=== PATIENT | male | born 1980 | race Caucasian/White ===

== ENCOUNTER 2022-02-24 16:40 | Emergency (ER) | payer MEDICAID, SELFPAY ==
[2022-02-24 16:44] VITALS: BP 143/80; PULSE 84; RESP 20; TEMP 37.2; O2SAT 99; BMI 29.1
--- NOTE | 2022-02-24 17:10 | ED_ITS ---
HPI - Skin/Abscess/Foreign Bdy General Chief complaint: Skin/Abscess/Foreign Body Stated complaint: rash all over body Time Seen by Provider: 02/24/22 17:09 Source: patient Mode of arrival: ambulatory Limitations: no limitations History of Present Illness HPI narrative: 41-year-old male presents to the ER for evaluation of a itchy rash that has spread for the last 2 and half weeks. He reports the rash started on his chest wall when he was admitted at [facility] for endocarditis. It was small red lesions and is now spread to his entire back and has small scattered areas on his forearms as well. He reports it is extremely itchy and uncomfortable. He denies any new lotions, detergents, soaps, perfumes. He denies any fever or chills. Denies any concern for scabies or lice. He took Benadryl once and it did not help so he stopped taking it. He reports a history of contact dermatitis and sensitive skin in the past. He has been off of antibiotics for his endocarditis. MD complaint: rash Onset (ago): week(s) Tetanus up to date: yes Location: face, neck, chest and back Severity: moderate Severity scale (1-10): 6 Quality: pruritic Pain Consistency: constant Relieving factors: none Exacerbating factors: none Context: recent illness Associated symptoms: denies other symptoms Treatments prior to arrival: none Related Data Previous Rx's Medication Instructions Recorded diphenhydramine HCl 50 mg capsule 50 mg PO Q6H PRN #20 cap 02/24/22 doxycycline hyclate 100 mg tablet 100 mg PO BID #14 tab 02/24/22 prednisone 50 mg tablet 50 mg PO DAILY #7 tab 02/24/22 Allergies Allergy/AdvReac Type Severity Reaction Status Date / Time cephalexin [From Keflex] Allergy Severe Difficulty Verified 02/24/22 17:11 Breathing Review of Systems Review of Systems: Constitutional: No Fever, No Chills ENT/Mouth: No sore throat, No Rhinorrhea, No Swallowing Difficulty Eyes: No Eye Pain, No Swelling, No Redness Cardiovascular: No Chest Pain, No SOB, No Orthopnea, No Edema Respiratory: No Cough, No Sputum, No Wheezing, No dyspnea Gastrointestinal: No Nausea, No Vomiting, No Diarrhea, No abdominal Pain Genitourinary: No Dysuria, No Urinary Frequency, No Hematuria Musculoskeletal: No joint pain, No Myalgias Skin: No Skin Lesions, + rash Neuro: No Weakness, No Numbness, No Dizziness, No Headache Psych: +Anxiety/Panic, No Depression Heme/Lymph: No Bruising, No Lymphadenopathy Endocrine: No Polyuria, No Polydipsia PMFSH Social History Social History Advance Directives: No Advance Directives Information Provided: No Physical Exam Vital Signs: Vital Signs: Last Vital Signs Temp 98.9 F 02/24/22 16:44 Pulse 84 02/24/22 16:44 Resp 20 02/24/22 16:44 BP 143/80 H 02/24/22 16:44 Pulse Ox 99 02/24/22 16:44 BMI result Body Mass Index 29.1 Appearance: Alert. Oriented X3. No acute distress. HEENT: normal inspection No swelling of the lips or tongue. Normal voice, handling secretions normally. CVS: Normal heart rate and rhythm. Pulses normal. No appreciable murmur. Respiratory: No respiratory distress. Lungs are clear throughout. Skin: Skin warm and dry. Normal skin color. Normal skin turgor. There is a diffuse, erythematous, maculopapular rash located scattered along the chest wall, abdomen and most notably on the upper back. There are small tiny pustules in certain areas. There are few scattered lesions on the forearms. There is also small area located on the face and neck. Extremities: normal inspection x4. no evidence of track quick. No rash in the webbing of the hands or on the palms. Neuro: Oriented X 3. No motor deficit. No sensory deficit. Course Course Course Narrative: 41-year-old male presents to the ER for evaluation of a pruritic and spreading rash for the last 2 weeks. They are certain areas that appear like folliculitis and others that urticarial in nature. Next extremely itchy. Will treat empirically for possible folliculitis and also give a course of steroids and Benadryl for itching given the diffuse distribution. He was encourage follow- up with his primary care doctor next week. He is encouraged come back to the ER if symptoms worsened despite treatment. Stable for discharge home. Discharge Plan Discharge Clinical Impression: Contact dermatitis Patient Disposition: Home, Self-Care Instructions: Contact Dermatitis (DC) Additional Instructions: Take all of the prescribed medications as directed You can also try topical benadryl spray to help with the itch, or apply ice Recommend using Dial antimicrobial body wash Follow up with your doctor next week If you develop new or worsening symptoms call 911 or come back to the ER for further evaluation. Prescriptions: New prednisone 50 mg tablet 50 mg PO DAILY Qty: 7 0RF diphenhydramine HCl 50 mg capsule 50 mg PO Q6H PRN (Reason: itching) Qty: 20 0RF doxycycline hyclate 100 mg tablet 100 mg PO BID Qty: 14 0RF Interventions: ED Discharge Assessment Last Done: 02/24/22 17:24 Discharge Date/Time: 02/24/22 17:25
== END 2022-02-24 17:25 | disposition home or self-care (01) ==
LOC: HO.ED 17:19
PROVIDERS: Emergency Provider Emergency Medicine; PCP Physician Assistant Medical
DX: L25.9 Unspecified contact dermatitis, unspecified cause (principal); R21 Rash and other nonspecific skin eruption; Z79.899 Other long term (current) drug therapy
CPT/HCPCS: 51798; 96365; 96376; 99283

== ENCOUNTER 2022-03-05 16:31 | Emergency (ER) | payer OTHER, SELFPAY ==
[2022-03-05 16:45] VITALS: BP 147/82; PULSE 97; RESP 18; TEMP 36.8; O2SAT 98; BMI 29.8
--- NOTE | 2022-03-05 17:15 | ED.ALLEREA ---
HPI - Allergic Reaction General Chief complaint: Allergic Reaction Stated complaint: body rash/itchiness Time Seen by Provider: 03/05/22 17:14 Source: patient Mode of arrival: ambulatory Limitations: no limitations History of Present Illness MD complaint: allergic reaction and hives Onset (ago): day(s) ( few days worse today) Exposure: unknown Symptoms: rash and itching Severity: moderate Treatment prior to arrival: benadryl (50mg ) Previous Allergic Reaction History: prior ED visit(s) (was seen here 1 week ago for similar complaint ) Related Data Previous Rx's Medication Instructions Recorded diphenhydramine HCl 50 mg capsule 50 mg PO Q6H PRN itching #20 caps 02/24/22 doxycycline hyclate 100 mg tablet 100 mg PO BID #14 tabs 02/24/22 prednisone 50 mg tablet 50 mg PO DAILY #7 tabs 02/24/22 diphenhydramine HCl 25 mg capsule 50 mg PO TID PRN allergic reaction 03/05/22 (Allergy Medication) #20 caps famotidine 20 mg tablet (Pepcid) 20 mg PO BID rash #20 tabs 03/05/22 hydrocortisone 2.5 % topical 1 appl topical QD-TID PRN skin 03/05/22 ointment irritation #454 grams prednisone 20 mg tablet 40 mg PO DAILY rash 5 days #10 tabs 03/05/22 Allergies Allergy/AdvReac Type Severity Reaction Status Date / Time cephalexin [From Keflex] Allergy Severe Difficulty Verified 03/05/22 16:44 Breathing Review of Systems Review of Systems: Constitutional : No Fever, No Chills , no body aches, no recent illness Head/Face: No facial swelling, No facial redness ENT/Mouth : No oral/throat swelling, No Hoarseness, No Swallowing Difficulty Eyes: No Eye Pain, No Swelling, No Redness Cardiovascular : No Chest Pain, No SOB, No palpitations Respiratory : No Cough, No Sputum, No Wheezing, No Smoke Exposure, No Dyspnea Gastrointestinal : No Nausea, No Vomiting, No Diarrhea, No abdominal Pain Genitourinary : No Dysuria, No Urinary Frequency, No Hematuria Musculoskeletal : No joint pain, No Myalgias, No Joint Swelling Skin : No Skin Lesions, positive rash Neuro : No Weakness, No Numbness, No Headache, No dizziness, No tingling Psych : No Anxiety/Panic, No Depression Heme/Lymph: No Bruising, No Lymphadenopathy Endocrine : No Polyuria, No Polydipsia Denies changes in lotions or detergents. Denies new medications or any changes in medications. Denies drainage from rash. Denies any recent sick contacts or recent travel. Yes all other systems are reviewed and are negative [facility] Past Medical History Attestation statement: The following information was validated with the patient. Source: old records reviewed and nursing notes reviewed Social History Social History Advance Directives: No Advance Directives Information Provided: Yes Physical Exam ED Vital Signs: Vital Signs - 24 hr 03/05/22 16:45 Temperature 98.2 F Pulse Rate 97 Respiratory Rate 18 Blood Pressure 147/82 H Pulse Oximetry 98 Oxygen Delivery Method Room Air BMI result Body Mass Index 29.8 vital signs have been reviewed as normal and appeared to be correct. Blood pressure normal. Heart rate normal. Respiration rate normal. Temperature normal. Oxygen saturation normal. Appearance: Alert. Oriented X3. No acute distress. Head: Normal external exam. Normocephalic. Atraumatic. no angioedema noted. Eyes: PERRLA. EOMI. Conjunctiva and sclera normal. Eyelids normal. ENT: Pharynx normal. Uvula midline. Moist mucous membranes. No lesions/ulcerations or masses noted on the tongue. Normal voice. No trismus noted. No drooling noted. No muffled voice noted. Neck: Normal inspection. Neck supple. FROM. No adenopathy. Thyroid Normal. No meningeal signs. CVS: Normal heart rate and rhythm. Heart sound normal. Pulses normal throughout. No murmurs/rales/gallops. Respiratory: No respiratory distress. Painless inspiration. Breath sounds normal. No wheezes/rales/rhonchi noted. Chest nontender. No accessory muscle usage noted or decreased air movement noted. Abdomen: Soft and nontender. Bowel sounds normal in all 4 quadrants. No distention noted. No organomegaly noted. No visible injury noted. Back: Full range of motion noted. Nontender. No signs of trauma. Patient neuro intact bilaterally and distally on all 4 extremities. Patient's reflexes intact bilaterally and distally on all 4 extremities. No rashes/lesion/induration/fluctuance or signs of infection noted. Skin: Skin warm and dry. Normal skin color. Normal skin turgor. patient with macular well-defined erythematous rash/ hives on the chest/ arms and back consistent with possible allergic reaction. No additional lesions/lacerations noted. Extremities: Extremities exhibit normal range of motion and nontender. Neuro: Oriented X 3. No motor deficit. No sensory deficit. Reflexes normal. Normal steady gait. No focal neuro deficits noted. CN's II-XII intact bilaterally? Vascular: + radial pulses/+ 2 distal pedal pulses/+2 dorsalis pedis b/l. Normal cap refill. No cyanosis noted to upper extremity nails and lower extremity toes nails. Course Course Course Narrative: IMP/Plan: Allergic rxn. Not anaphylaxis. Not sepsis/ infectious etiology. Patient well appearing in no acute distress, breathing easily without throat symptoms. Speaking full sentences, and handling secretions without difficulty. There is no obvious threat to airway. Lungs are CTA in all harmon. No signs of angioedema, stridor, airway compromise, anaphylaxis or anaphylactic shock. Not c/w SSSS/ TEN/ Eryth multiforme/ [place]. Given HPI and PE - Will watch and observe. If patient continues to be symptom free - will d/c with return precautions. Patient understands and agrees with plan MDM - Allergic Reaction Medical Records Attestation: I reviewed the patient's medical records. Discharge Plan Discharge Clinical Impression: Allergic reaction Patient Disposition: Home, Self-Care Instructions: General Allergic Reaction (ED), Allergy Testing (ED) Prescriptions: New diphenhydramine HCl [Allergy Medication] 25 mg capsule 50 mg PO TID PRN (Reason: allergic reaction) Qty: 20 0RF prednisone 20 mg tablet 40 mg PO DAILY 5 Days Qty: 10 0RF famotidine [Pepcid] 20 mg tablet 20 mg PO BID Qty: 20 0RF hydrocortisone 2.5 % ointment 1 appl topical QD-TID PRN (Reason: skin irritation) Qty: 454 0RF No Action prednisone 50 mg tablet 50 mg PO DAILY Qty: 7 0RF diphenhydramine HCl 50 mg capsule 50 mg PO Q6H PRN (Reason: itching) Qty: 20 0RF doxycycline hyclate 100 mg tablet 100 mg PO BID Qty: 14 0RF Referrals: Shaw Taylor PA [Primary Care Provider] - 2 days ( You need an [employer] crm developer referral) Print Language: Thai
[2022-03-05] MEDS: predniSONE 20 MG TABLET 60 MG PO (17:44)
[2022-03-05] MEDS: Famotidine 20 MG TABLET PO (17:45)
[2022-03-05] MEDS: hydrOXYzine HCL 25 MG TABLET PO (17:45)
== END 2022-03-05 17:50 | disposition home or self-care (01) ==
PROVIDERS: Emergency Provider Emergency Medicine; PCP Physician Assistant Medical
DX: T78.40XA Allergy, unspecified, initial encounter (principal); X58.XXXA Exposure to other specified factors, initial encounter
CPT/HCPCS: 99283